=== PATIENT | female | born 1955 | race Caucasian/White ===

== ENCOUNTER 2020-10-30 21:22 | Observation (INO) | payer MEDICARE ==
[2020-10-30 23:24] LABS: Albumin 4.1 g/dL (3.5-5.0); Calcium 9.6 mg/dL (8.4-10.2); Magnesium 1.8 mg/dL (1.6-2.3); Potassium 4.1 mmol/L (3.5-5.1); Total Bilirubin 0.3 mg/dL (0.2-1.3); Total Protein 7.1 g/dL (6.3-8.2)
--- NOTE | 2020-10-30 23:27 | XR ---
EXAMINATION TYPE: XR chest 2V DATE OF EXAM: 10/30/2020 COMPARISON: NONE HISTORY: Cough and congestion TECHNIQUE: 2 views FINDINGS: Heart and mediastinum are normal. Lungs are clear of infiltrate. There is no pleural effusi on. There are no hilar masses. There is osteopenia. There is probably some minimal wedging of mid thoracic vertebra. IMPRESSION: No active cardiopulmonary disease.
[2020-10-30 23:33] LABS: Basophils # (A) 0.1 k/uL (0-0.2); Basophils % (A) 1 %; Eosinophils # (A) 0.4 k/uL (0-0.7); Eosinophils % (A) 5 %; HCT 43.1 % (34.0-46.0); HGB 14.7 gm/dL (11.4-16.0); Lymphocytes # (A) 1.8 k/uL (1.0-4.8); Lymphocytes % (A) 20 %; MCH 31.3 pg (25.0-35.0); MCHC 34.1 g/dL (31.0-37.0); MCV 91.9 fL (80.0-100.0); Mean Platelet Volume 6.9; Monocytes # (A) 0.5 k/uL (0-1.0); Monocytes % (A) 6 %; Neutrophils # (A) 6.2 k/uL (1.3-7.7); Neutrophils % (A) 68 %; Platelet Count 274 k/uL (150-450); RBC 4.69 m/uL (3.80-5.40); WBC 9.1 k/uL (3.8-10.6)
[2020-10-30 23:37] LABS: Partial Thromboplastin Time 25.6 sec (22.0-30.0); Prothrombin Time 10.9 sec (9.0-12.0)
--- NOTE | 2020-10-30 23:53 | ED ---
General Adult HPI - General Chief complaint: Upper Respiratory Infection Stated complaint: Cough,Weakness Time Seen by Provider: 10/30/20 22:11 Source: patient Mode of arrival: ambulatory Limitations: no limitations - History of Present Illness Initial comments: 65-year-old female with history of hypertension and dyslipidemia presents emergency Department with a chief complaint of cough and congestion. Patient reports the symptoms began approximately 1 week ago with URI-like symptoms but since yesterday she developed worsening of a nonproductive cough and fatigue. Patient reports she was tested on Wednesday and got the results 2 days after that was negative for covid-19an. However, she states her daughter tested positive. She denies any fever or chills at home but does report some dizziness without any lightheadedness. She reports having pain "under her left shoulder blade" earlier today that lasted for about 2-3 hours. She denies any exertional chest pain or shortness of breath. Patient states her blood pressure has been elevated throughout the whole week while she was been sick. Patient takes propranolol for hypertension. She denies any nausea vomiting or diarrhea. She denies any visual changes, headaches, one-sided weakness or paresthesias. - Related Data Allergies Allergy/AdvReac Type Severity Reaction Status Date / Time ciprofloxacin [From Cipro] Allergy Unknown Verified 10/30/20 21:39 Sulfa (Sulfonamide Allergy Unknown Verified 10/30/20 21:39 Antibiotics) sulfamethoxazole Allergy Unknown Verified 10/30/20 21:39 [From Bactrim] trimethoprim [From Bactrim] Allergy Unknown Verified 10/30/20 21:39 steroid Allergy Unknown Uncoded 10/30/20 21:39 Review of Systems ROS Statement: Those systems with pertinent positive or pertinent negative responses have been documented in the HPI. ROS Other: All systems not noted in ROS Statement are negative. Past Medical History Past Medical History: Hypertension History of Any Multi-Drug Resistant Organisms: None Reported Past Surgical History: No Surgical Hx Reported Past Psychological History: No Psychological Hx Reported Smoking Status: Never smoker Past Alcohol Use History: None Reported Past Drug Use History: None Reported General Exam Limitations: no limitations General appearance: alert, in no apparent distress Head exam: Present: atraumatic, normocephalic, normal inspection Eye exam: Present: normal appearance, PERRL, EOMI Pupils: Present: normal accommodation ENT exam: Present: normal exam, normal oropharynx, mucous membranes moist, TM's normal bilaterally, normal external ear exam Neck exam: Present: normal inspection, full ROM. Absent: tenderness Respiratory exam: Present: normal lung sounds bilaterally. Absent: respiratory distress, wheezes, rales, rhonchi, stridor, chest wall tenderness, accessory muscle use Cardiovascular Exam: Present: regular rate, normal rhythm, normal heart sounds GI/Abdominal exam: Present: soft. Absent: distended, tenderness, rebound Extremities exam: Present: normal inspection, full ROM, normal capillary refill. Absent: tenderness, pedal edema, joint swelling Back exam: Present: normal inspection, full ROM. Absent: tenderness, CVA tenderness (R), CVA tenderness (L), muscle spasm, paraspinal tenderness, vertebral tenderness Neurological exam: Present: alert, oriented X3, normal gait Psychiatric exam: Present: normal affect, normal mood Skin exam: Present: warm, dry, intact, normal color Course Vital Signs 10/30/20 10/30/20 10/30/20 21:32 22:14 23:24 Temperature 98.4 F Pulse Rate 67 71 74 Respiratory 18 18 18 Rate Blood Pressure 213/118 180/113 145/88 O2 Sat by Pulse 97 97 96 Oximetry 10/31/20 00:00 Temperature Pulse Rate 70 Respiratory 20 Rate Blood Pressure 154/96 O2 Sat by Pulse 97 Oximetry EKG Findings - EKG Comments: EKG Findings:: Sinus rhythm, inverted T waves in lead 3. Ventricular rate 67, AR 164, QRS 78, QTC 429. Medical Decision Making - Medical Decision Making 65-year-old female with history of hypertension and dyslipidemia presents emergency Department with a chief complaint of cough and congestion. CBC CMP unremarkable. Coags within normal limits. Chest x-ray is unremarkable. Initial troponins are negative. Considering the patient's presentation, concern for an atypical cardiac event. Patient has never had a stress test nor an echocardiogram. I will admit for cardiac observation and serial troponins. Case discussed with Admitting Dr Juan C Huynh on consult - Lab Data Result diagrams: 10/30/20 23:09 10/30/20 23:09 Lab Results 10/30/20 10/30/20 10/30/20 Range/Units 22:25 23:09 23:09 WBC 9.1 (3.8-10.6) k/uL RBC 4.69 (3.80-5.40) m/uL Hgb 14.7 (11.4-16.0) gm/dL Hct 43.1 (34.0-46.0) % MCV 91.9 (80.0-100.0) fL MCH 31.3 (25.0-35.0) pg MCHC 34.1 (31.0-37.0) g/dL RDW 12.0 (11.5-15.5) % Plt Count 274 (150-450) k/uL MPV 6.9 Neutrophils % 68 % Lymphocytes % 20 % Monocytes % 6 % Eosinophils % 5 % Basophils % 1 % Neutrophils # 6.2 (1.3-7.7) k/uL Lymphocytes # 1.8 (1.0-4.8) k/uL Monocytes # 0.5 (0-1.0) k/uL Eosinophils # 0.4 (0-0.7) k/uL Basophils # 0.1 (0-0.2) k/uL PT 10.9 (9.0-12.0) sec INR 1.0 (<1.2) APTT 25.6 (22.0-30.0) sec Sodium (137-145) mmol/L Potassium (3.5-5.1) mmol/L Chloride (98-107) mmol/L Carbon Dioxide (22-30) mmol/L Anion Gap mmol/L BUN (7-17) mg/dL Creatinine (0.52-1.04) mg/dL Est GFR (CKD-EPI)AfAm (>60 ml/min/1.73 sqM) Est GFR (CKD-EPI)NonAf (>60 ml/min/1.73 sqM) Glucose (74-99) mg/dL Calcium (8.4-10.2) mg/dL Magnesium (1.6-2.3) mg/dL Total Bilirubin (0.2-1.3) mg/dL AST (14-36) U/L ALT (4-34) U/L Alkaline Phosphatase (38-126) U/L Troponin I (0.000-0.034) ng/mL Total Protein (6.3-8.2) g/dL Albumin (3.5-5.0) g/dL Influenza Type A (PCR) Not Detected (Not Detectd) Influenza Type B (PCR) Not Detected (Not Detectd) RSV (PCR) Not Detected (Not Detectd) SARS-CoV-2 (PCR) Not Detected (Not Detectd) 10/30/20 10/30/20 Range/Units 23:09 23:09 WBC (3.8-10.6) k/uL RBC (3.80-5.40) m/uL Hgb (11.4-16.0) gm/dL Hct (34.0-46.0) % MCV (80.0-100.0) fL MCH (25.0-35.0) pg MCHC (31.0-37.0) g/dL RDW (11.5-15.5) % Plt Count (150-450) k/uL MPV Neutrophils % % Lymphocytes % % Monocytes % % Eosinophils % % Basophils % % Neutrophils # (1.3-7.7) k/uL Lymphocytes # (1.0-4.8) k/uL Monocytes # (0-1.0) k/uL Eosinophils # (0-0.7) k/uL Basophils # (0-0.2) k/uL PT (9.0-12.0) sec INR (<1.2) APTT (22.0-30.0) sec Sodium 141 (137-145) mmol/L Potassium 4.1 (3.5-5.1) mmol/L Chloride 108 H (98-107) mmol/L Carbon Dioxide 24 (22-30) mmol/L Anion Gap 9 mmol/L BUN 14 (7-17) mg/dL Creatinine 0.84 (0.52-1.04) mg/dL Est GFR (CKD-EPI)AfAm 84 (>60 ml/min/1.73 sqM) Est GFR (CKD-EPI)NonAf 73 (>60 ml/min/1.73 sqM) Glucose 144 H (74-99) mg/dL Calcium 9.6 (8.4-10.2) mg/dL Magnesium 1.8 (1.6-2.3) mg/dL Total Bilirubin 0.3 (0.2-1.3) mg/dL AST 28 (14-36) U/L ALT 25 (4-34) U/L Alkaline Phosphatase 88 (38-126) U/L Troponin I <0.012 (0.000-0.034) ng/mL Total Protein 7.1 (6.3-8.2) g/dL Albumin 4.1 (3.5-5.0) g/dL Influenza Type A (PCR) (Not Detectd) Influenza Type B (PCR) (Not Detectd) RSV (PCR) (Not Detectd) SARS-CoV-2 (PCR) (Not Detectd) Disposition Clinical Impression: Acute upper respiratory infection, Atypical chest pain Disposition: ADMITTED IP TO THIS HOSP Condition: Stable Instructions (If sedation given, give patient instructions): Upper Respiratory Infection in Children (ED) Is patient prescribed a controlled substance at d/c from ED?: No Referrals: Maki Esteban MD [Primary Care Provider] - 1-2 days Time of Disposition: 00:57
[2020-10-31] MEDS ORDERED: NITROGLYCERIN SL TABS 0.4 MG TAB SUBLINGUAL PRN (00:31)
--- NOTE | 2020-10-31 12:45 | P.CRDCN ---
History of Present Illness History of present illness: HISTORY OF PRESENTING ILLNESS This is a pleasant 65-year-old female past medical history significant for hypertension and migraines. 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 Patient states that yesterday she had elevated blood pressure 166/111. She also has had increased anxiety and stressors at home. She states that everyone calls Homes, and it does stressors at times. She states she had left sided shoulder blade pain and presented emergency department. Patient denies chest pain, shortness of breath, palpitations, fatigue, lightheadedness, dizziness. She is a nondiabetic, nonsmoker. She used to have high cholesterol however has had a controlled diet changes. 2 years ago she had similar presentation with elevated blood pressure she went to a hospital in [place] she underwent stress test, echocardiogram, bilateral ultrasound of carotids and was told that these tests were all normal. She states that her doctor put her on propanolol 60 mg daily to help with her migraines and her blood pressure. On admission patient's blood pressure 213/118, heart rate 67 patient not given any medications for her heart rate improved currently her blood pressure is 107/70, heart rate in the 60s DIAGNOSTICS EKG reveals sinus rhythm, heart rate 67, T wave inversion in lead III, second EKG revealed sinus bradycardia, heart rate 48, T wave inversions in lead III. no significant ST ST-T wave abnormalities, no prior EKG to compare. Telemetry tracings indicate sinus mechanism, heart rate 60-100 Chest xray no active cardiopulmonary disease. Laboratory reviewed, troponins negative 3, renal function is stable, potassium 4.1, magnesium 1.8, COVID-19 negative, CBC unremarkable Current cardiac medications include propanolol 60 mg nightly REVIEW OF SYSTEMS At the time of my exam: CONSTITUTIONAL: Denies fever or chills. CARDIOVASCULAR: Denies chest pain, shortness of breath, orthopnea, PND or palpitations. RESPIRATORY: Denies cough. GASTROINTESTINAL: Denies abdominal pain, diarrhea, constipation, nausea or vomiting. MUSCULOSKELETAL: Left upper back pain Denies myalgias. NEUROLOGIC: Denies numbness, tingling, headacbe or weakness. ENDOCRINE: Denies fatigue, weight change, polydipsia or polyurina. GENITOURINARY: Denies burning, hematuria or urgency with micturation. HEMATOLOGIC: Denies history of anemia or bleeding. PHYSICAL EXAMINATION Blood pressure 107/70 heart rate 60 afebrile and maintaining oxygen saturation 96% on room air CONSTITUTIONAL: No apparent distress. HEENT: Head is normocephalic. Pupils are equal, round. Sclerae anicteric. Mucous membranes of the mouth are moist. No JVD. No carotid bruit. CHEST EXAMINATION: Lungs are clear to auscultation. No chest wall tenderness is noted on palpation or with deep breathing. HEART EXAMINATION: Regular rate and rhythm. S1, S2 heard. No murmurs, gallops or rub. ABDOMEN: Soft, nontender. Positive bowel sounds. EXTREMITIES: 2+ peripheral pulses, no lower extremity edema and no calf tenderness. NEUROLOGIC EXAMINATION: Patient is awake, alert and oriented x3. ASSESSMENT Atypical chest pain, acute coronary syndrome has been ruled out Hypertension PLAN An acute coronary event has been ruled out with no EKG evidence of ischemia and negative cardiac enzymes. Obtain 2D echocardiogram and doppler study to assess cardiac structure and function. Perform exercise stress test to assess for stress induced cardiac ischemia. Exercise stress test is negative, in no acute changes on echocardiogram patient can be discharged from cardiology perspective Follow up with Dr. Alan within 2 weeks Thank you kindly for this consultation. Nurse Practitioner note has been reviewed, I agree with a documented findings and plan of care. Patient was seen and examined. Past Medical History Past Medical History: Hyperlipidemia, Hypertension History of Any Multi-Drug Resistant Organisms: None Reported Past Surgical History: Cholecystectomy, Hysterectomy Additional Past Surgical History / Comment(s): left ankle tendon repair and joint fusion, partial hysterectomy, tonsoils removed Past Anesthesia/Blood Transfusion Reactions: No Reported Reaction Past Psychological History: No Psychological Hx Reported Smoking Status: Never smoker Past Alcohol Use History: None Reported Past Drug Use History: None Reported - Past Family History Father Additional Family Medical History / Comment(s): mitral valve repair Mother Family Medical History: Myocardial Infarction ([place]) Brother(s) Family Medical History: CVA/TIA, Hypertension Medications and Allergies Home Medications Medication Instructions Recorded Confirmed Type Pantoprazole [Protonix] 40 mg PO AC-BRKFST 10/31/20 10/31/20 History Propranolol HCl [Propranolol HCl 60 mg PO HS@2200 10/31/20 10/31/20 History ER] Allergies Allergy/AdvReac Type Severity Reaction Status Date / Time ciprofloxacin [From Cipro] Allergy Unknown Verified 10/31/20 06:54 Sulfa (Sulfonamide Allergy Unknown Verified 10/31/20 06:54 Antibiotics) sulfamethoxazole Allergy Unknown Verified 10/31/20 06:54 [From Bactrim] trimethoprim [From Bactrim] Allergy Unknown Verified 10/31/20 06:54 steroid Allergy Unknown Uncoded 10/31/20 06:54 Physical Exam Vitals: Vital Signs Temp Pulse Pulse Resp BP BP Pulse Ox 10/31/20 03:41 97.8 F 60 16 153/85 97 10/31/20 01:50 98 F 64 16 147/86 96 10/31/20 01:31 98 F 62 20 152/88 98 10/31/20 00:00 70 20 154/96 97 10/30/20 23:24 74 18 145/88 96 10/30/20 22:14 71 18 180/113 97 10/30/20 21:32 98.4 F 67 18 213/118 97 Intake and Output 10/30/20 10/31/20 10/31/20 22:59 06:59 14:59 Intake Total 240 Balance 240 Intake: Oral 240 Other: Voiding Method Toilet # Voids 2 Weight 76.204 kg 76.2 kg Results 10/30/20 23:09 10/30/20 23:09 Cardiac Enzymes 10/30/20 10/30/20 10/31/20 Range/Units 23:09 23:09 01:24 AST 28 (14-36) U/L Troponin I <0.012 <0.012 (0.000-0.034) ng/mL 10/31/20 Range/Units 04:08 AST (14-36) U/L Troponin I <0.012 (0.000-0.034) ng/mL Coagulation 10/30/20 Range/Units 23:09 PT 10.9 (9.0-12.0) sec APTT 25.6 (22.0-30.0) sec CBC 10/30/20 Range/Units 23:09 WBC 9.1 (3.8-10.6) k/uL RBC 4.69 (3.80-5.40) m/uL Hgb 14.7 (11.4-16.0) gm/dL Hct 43.1 (34.0-46.0) % Plt Count 274 (150-450) k/uL Comprehensive Metabolic Panel 10/30/20 Range/Units 23:09 Sodium 141 (137-145) mmol/L Potassium 4.1 (3.5-5.1) mmol/L Chloride 108 H (98-107) mmol/L Carbon Dioxide 24 (22-30) mmol/L BUN 14 (7-17) mg/dL Creatinine 0.84 (0.52-1.04) mg/dL Glucose 144 H (74-99) mg/dL Calcium 9.6 (8.4-10.2) mg/dL AST 28 (14-36) U/L ALT 25 (4-34) U/L Alkaline Phosphatase 88 (38-126) U/L Total Protein 7.1 (6.3-8.2) g/dL Albumin 4.1 (3.5-5.0) g/dL Current Medications Generic Name Dose Route Start Last Admin Trade Name Freq PRN Reason Stop Dose Admin Aspirin 325 mg 11/01/20 09:00 Aspirin 325 Mg Tab PO DAILY TEDDY Nitroglycerin 0.4 mg 10/31/20 00:31 Nitroglycerin Sl Tabs 0.4 Mg Tab SUBLINGUAL Q5M PRN Chest Pain Intake and Output 10/30/20 10/31/20 10/31/20 22:59 06:59 14:59 Intake Total 240 Balance 240 Intake: Oral 240 Other: Voiding Method Toilet # Voids 2 Weight 76.204 kg 76.2 kg 10/30/20 23:09 10/30/20 23:09
[2020-10-31] MEDS: PANTOPRAZOLE 40 MG TABLET PO SCH (13:59)
--- NOTE | 2020-10-31 20:05 | P.HPIM ---
History of Present Illness H&P Date: 10/31/20 Chief Complaint: Feeling unwell History of presenting complaint: This is a pleasant 65 year old patient of Dr. Maki Esteban. Patient been taking her blood pressure medication for quite some time. She now presents with an episode of just feeling unwell feeling off anxious crying. She states that she get these next 0 symptoms she noted that her blood pressure is running high. On this occasion her blood pressure was running above 200 systolic and above 100 diastolic. No chest or palpitation. She is with 7 children. And often temperature admin confiding to her and she internalizes their problems.. Also her sister is going through some trouble and has been confiding enough for last 3 days. Also children have been calling her because their father got m arried to somebody else. Otherwise patient been in good health otherwise. No fever no chills. No dizziness, lightheadedness. No shortness breath. No edema. Review of systems: GEN.: Tired EYES: None HEENT: None NECK: None RESPIRATORY: None CARDIOVASCULAR: None GASTROINTESTINAL: Reflex GENITOURINARY: Urinary incontinence MUSCULOSKELETAL: Joint pains LYMPHATICS: None HEMATOLOGICAL: None PSYCHIATRY: Slight anxious NEUROLOGICAL: None Past medical history to include: Hypertension, diet controlled hyperlipidemia, osteoarthritis, GERD Social history: Does alone. No history of smoking or alcohol Physical examination: VITAL SIGNS: 98.4, 67, 18, 213 01 118, 97% room air upon presentation GENERAL: Average built, sitting up, comfortable. EYES: Pupils equal. Conjunctiva normal. HEENT: External appearance of nose and ears normal, oral cavity grossly normal. NECK: JVD not raised; masses not palpable. HEART: First and second heart sounds are normal; no edema. LUNGS: Respiratory rate normal; clear to auscultation. ABDOMEN: Soft, nontender, liver spleen not palpable, no masses palpable. PSYCH: Alert and oriented x3; mood and affect normal. NEUROLOGICAL: Cranial nerves grossly intact; no facial asymmetry, power and sensation grossly intact. LYMPHATICS: No lymph nodes palpable in the axilla and neck INVESTIGATIONS, reviewed in the clinical context: WBC 9.1 hemoglobin 14.7 platelets 2744.1 creatinine 0.84 Troponin I 3 negative Influenza type A, type B, RSV, COVID 19 PCR: Not detected EKG tracing personally reviewed by me-no sinus rhythm, with some T-wave changes Chest x-ray film personally reviewed by me--clear Assessment and plan: -This is a patient with known history of hypertension now presents with feeling unwell symptoms including anxious, crying, feeling off. She has been dealing with her social issues rundown the family members. This could be psychosomatic from her anxiety episode. At the same time giving the paroxysmal nature of the blood pressure need to rule out pheochromocytoma. We will do a 2-D echocardiogram. Also I'll order 24-hour urine collection for catecholamine and metanephrine. -Essential hypertension Patient's blood pressure is rather running well currently. Hold off any antihypertensive. -GERD Continue Protonix -Mild urinary stress incontinence Care was discussed with the patient. Cardiology consulted. Past Medical History Past Medical History: Hyperlipidemia, Hypertension History of Any Multi-Drug Resistant Organisms: None Reported Past Surgical History: Cholecystectomy, Hysterectomy Additional Past Surgical History / Comment(s): left ankle tendon repair and joint fusion, partial hysterectomy, tonsoils removed Past Anesthesia/Blood Transfusion Reactions: No Reported Reaction Past Psychological History: No Psychological Hx Reported Smoking Status: Never smoker Past Alcohol Use History: None Reported Past Drug Use History: None Reported - Past Family History Father Additional Family Medical History / Comment(s): mitral valve repair Mother Family Medical History: Myocardial Infarction ([place]) Brother(s) Family Medical History: CVA/TIA, Hypertension Medications and Allergies Home Medications Medication Instructions Recorded Confirmed Type Pantoprazole [Protonix] 40 mg PO AC-BRKFST 10/31/20 10/31/20 History Propranolol HCl [Propranolol HCl 60 mg PO HS@2200 10/31/20 10/31/20 History ER] Allergies Allergy/AdvReac Type Severity Reaction Status Date / Time ciprofloxacin [From Cipro] Allergy Unknown Verified 10/31/20 06:54 Sulfa (Sulfonamide Allergy Unknown Verified 10/31/20 06:54 Antibiotics) sulfamethoxazole Allergy Unknown Verified 10/31/20 06:54 [From Bactrim] trimethoprim [From Bactrim] Allergy Unknown Verified 10/31/20 06:54 steroid Allergy Unknown Uncoded 10/31/20 06:54 Physical Exam Vitals: Vital Signs Temp Pulse Pulse Resp BP BP Pulse Ox 10/31/20 11:17 60 16 107/70 94 L 10/31/20 09:27 62 16 111/71 96 10/31/20 03:41 97.8 F 60 16 153/85 97 10/31/20 01:50 98 F 64 16 147/86 96 10/31/20 01:31 98 F 62 20 152/88 98 10/31/20 00:00 70 20 154/96 97 10/30/20 23:24 74 18 145/88 96 10/30/20 22:14 71 18 180/113 97 10/30/20 21:32 98.4 F 67 18 213/118 97 Intake and Output 10/30/20 10/31/20 10/31/20 22:59 06:59 14:59 Intake Total 240 Balance 240 Intake: Oral 240 Other: Voiding Method Toilet Toilet # Voids 2 Weight 76.204 kg 76.2 kg Results CBC & Chem 7: 10/30/20 23:09 10/30/20 23:09 Labs: Abnormal Lab Results - Last 24 Hours (Table) 10/30/20 Range/Units 23:09 Chloride 108 H (98-107) mmol/L Glucose 144 H (74-99) mg/dL Thrombosis Risk Factor Assmnt - Choose All That Apply Each Factor Represents 1 point: Obesity (BMI >25) Each Risk Factor Represents 2 Points: Age 61-74 years Thrombosis Risk Factor Assessment Total Risk Factor Score: 3 Thrombosis Risk Factor Assessment Level: Moderate Risk
[2020-11-01 06:00] LABS: Cholesterol 201 mg/dL (<200); HDL Cholesterol 47 mg/dL (40-60); LDL Cholesterol,Calculated 119 mg/dL (0-99); Triglycerides 176 mg/dL (<150)
[2020-11-01] MEDS: PANTOPRAZOLE 40 MG TABLET PO SCH (06:55)
[2020-11-01] MEDS ORDERED: ASPIRIN 325 MG TAB PO SCH (09:00)
--- NOTE | 2020-11-01 11:54 | ECHOF ---
Referral Reason:Assess LV function and wall abnormalities MEASUREMENTS -------- HEIGHT: 160.0 cm WEIGHT: 76.2 kg BP: RVIDd: 3.0 cm (< 3.3) IVSd: 1.1 cm (0.6 - 1.1) LVIDd: 3.6 cm (3.9 - 5.3) LVPWd: 1.0 cm (0.6 - 1.1) IVSs: 1.5 cm LVIDs: 2.4 cm LVPWs: 1.0 cm LA Diam: 2.7 cm (2.7 - 3.8) Ao Diam: 3.4 cm (2.0 - 3.7) AV Cusp: 1.6 cm (1.5 - 2.6) LA Diam: 4.1 cm (2.7 - 3.8) MV EXCURSION: 17.570 mm (> 18.000) MV EF SLOPE: 62 mm/s (70 - 150) EPSS: 0.3 cm MV E Henrik: 0.53 m/s MV DecT: 234 ms MV A Henrik: 0.53 m/s MV E/A Ratio: 0.99 RAP: 5.00 mmHg RVSP: 22.12 mmHg FINDINGS -------- Sinus rhythm. This was a technically good study. LV size, wall thickness and systolic function are normal, with an EF greater than 55%. The left joselito tricular size is normal. The right ventricle is normal in size. The left atrial size is normal. The right atrial size is normal. There is mild aortic valve sclerosis. There is no evidence of aortic regurgitation. Mild mitral annular calcification present. Mild mitral regurgitation is present. Mild tricuspid regurgitation present. Right ventricular systolic pressure is normal at < 35 mmHg. There is no pulmonic regurgitation present. The aortic root size is normal. There is no pericardial effusion. CONCLUSIONS -------- 1. LV size, wall thickness and systolic function are normal, with an EF greater than 55%. 2. The left ventricular size is normal. 3. The right ventricle is normal in size. 4. The left atrial size is normal. 5. The right atrial size is normal. 6. There is mild aortic valve sclerosis. 7. Mild mitral annular calcification present. 8. Mild mitral regurgitation is present. 9. Mild tricuspid regurgitation present. 10. The aortic root size is normal. 11. There is no pericardial effusion. [employer] BLASTING: Luci Tian RDCS
--- NOTE | 2020-11-01 12:10 | P.STRESS ---
- Stress Test Note Stress Test Results/Findings: Exam Performed: stress test Exam Date: 10/31/20 Reason for Exam: HTN Height: 5 ft 3 in Weight: 75.8 kg Protocol: JEVON Stage: II Duration of Exercise: 6.18 Resting Heart Rate: 68 Resting Blood Pressure: 137/98 Maximum Achieved Heart Rate: 116 Maximum Achieved Blood Pressure: 170/103 85% PMHR: 75 100% PMHR: 154 METS: 134 Technologist Comment: Stress Test Results/Findings: Patient underwent exercise stress EKG with a Jevon protocol treadmill stress test. Patient exercised into Stage 2 for a total of 6 minutes 18 seconds reaching a total of 7.3 METS. Patient's maximum heart rate was 116 which represented 75% age-predicted maximum heart rate. Stress EKG findings: At baseline patient's EKG showed normal sinus rhythm, normal axis, no ST or T wave abnormalities. At peak exercise, EKG showed nonspecific 0.[address] depressions in the inferior and lateral leads. Conclusions: 1. Inconclusive stress EKG secondary to inability to reach 85% maximum predicted heart rate 2. However at the heart rate achieved, no evidence of stress-induced ischemia. 3. Fair exercise capacity.
--- NOTE | 2020-11-01 12:59 | P.PN ---
Subjective HISTORY OF PRESENTING ILLNESS This is a pleasant 65-year-old female past medical history significant for hypertension and migraines. 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 Patient states that yesterday she had elevated blood pressure 166/111. She also has had increased anxiety and stressors at home. She states that everyone calls Homes, and it does stressors at times. She states she had left sided shoulder blade pain and presented emergency department. Patient denies chest pain, shortness of breath, palpitations, fatigue, lightheadedness, dizziness. She is a nondiabetic, nonsmoker. She used to have high cholesterol however has had a controlled diet changes. 2 years ago she had similar presentation with elevated blood pressure she went to a hospital in [place] she underwent stress test, echocardiogram, bilateral ultrasound of carotids and was told that these tests were all normal. She states that her doctor put her on propanolol 60 mg daily to help with her migraines and her blood pressure. On admission patient's blood pressure 213/118, heart rate 67 patient not given any medications for her heart rate improved currently her blood pressure is 107/70, heart rate in the 60s. EKG reveals sinus rhythm, heart rate 67, T wave inversion in lead III, second EKG revealed sinus bradycardia, heart rate 48, T wave inversions in lead III. no significant ST ST-T wave abnormalities, no prior EKG to compare. troponins negative 3. Chest xray no active cardiopulmonary disease.Current home cardiac medications include propanolol 60 mg nightly 11/01/2020: Patient seen and examined at bedside, no complaints, no acute distress. Patient underwent exercise stress testwith Juan Jose protocol yesterday patient's maximum heart rate was 116 which represented 75% of age-predicted maximum heart rate. Results reviewed inconclusive stress EKG secondary to inability to reach 85% maximum predicted HR however at heart rate achieved no evidence of stress induced ischemia. echocardiogram revealed normal left ventricular systolic function with an EF greater than 55%, mild mitral regurgitation, mild tricuspid regurgitation. Telemetry tracings indicate sinus mechanism, heart rate 50-70s. Patient's BP has been stable and actually hypotensive BP 95/62 HR 80s PHYSICAL EXAMINATION CONSTITUTIONAL: No apparent distress. HEENT: Head is normocephalic No JVD. No carotid bruit. CHEST EXAMINATION: Lungs are clear to auscultation. HEART EXAMINATION: Regular rate and rhythm. S1, S2 heard. No murmurs, gallops or rub. ABDOMEN: Soft, nontender. Positive bowel sounds. EXTREMITIES: 2+ peripheral pulses, no lower extremity edema and no calf tenderness. NEUROLOGIC EXAMINATION: Patient is awake, alert and oriented x3. ASSESSMENT Atypical chest pain, acute coronary syndrome has been ruled out Hypertension PLAN From cardiology perspective, patient with negative stress test and echocardiogram with no acute findings. Patient can be discharged home. and follow up outpatient with Dr. Alan within 2 weeks. Patient blood pressure has been stable without propanolol use. Thank you kindly for this consultation. Nurse Practitioner note has been reviewed, I agree with a documented findings and plan of care. Patient was seen and examined. Objective - Vital Signs Vital signs: Vital Signs Temp 97.4 F L 11/01/20 08:00 Pulse 69 11/01/20 08:00 Resp 18 11/01/20 08:00 BP 105/71 11/01/20 08:00 Pulse Ox 94 L 11/01/20 08:00 Intake & Output 10/31/20 11/01/20 11/01/20 18:59 06:59 18:59 Intake Total 1440 240 Output Total 300 Balance 1140 240 Weight 76.2 kg 75.8 kg Intake: Oral 1440 240 Output: Urine 300 Other: Voiding Method Toilet Toilet # Voids 1 - Labs CBC & Chem 7: 10/30/20 23:09 10/30/20 23:09 Labs: Abnormal Lab Results - Last 24 Hours (Table) 11/01/20 Range/Units 05:21 Triglycerides 176 H (<150) mg/dL Cholesterol 201 H (<200) mg/dL LDL Cholesterol, Calc 119 H (0-99) mg/dL
--- NOTE | 2020-11-01 16:04 | P.PN ---
Progress Note - Text Progress Note Date: 11/01/20 Chief Complaint: Feeling unwell History of presenting complaint: This is a pleasant 65 [address] old patient of Dr. Maki Esteban. Patient been taking her blood pressure medication for quite some time. She now presents with an episode of just feeling unwell feeling off anxious crying. She states that she get these next 0 symptoms she noted that her blood pressure is running high. On this occasion her blood pressure was running above 200 systolic and above 100 diastolic. No chest or palpitation. She is with 7 children. And often temperature admin confiding to her and she internalizes their problems.. Also her sister is going through some trouble and has been confiding enough for last 3 days. Also children have been calling her because their father got to somebody else. Otherwise patient been in good health otherwise. No fever no chills. No dizziness, lightheadedness. No shortness breath. No edema. Today: Patient informs pain that the night nurse the day before and told her to start the home blood pressure medications. That she has been taking the last 2 nights. Now that was not prescribed the hospital here. Her blood pressures occasionally running low this morning. Otherwise no further episodes. Patient started a 24-hour urine collection for catecholamines. Review of systems: Was done for constitutional, cardiovascular, GI, pulmonary. relevant finding as above Active Medications Nitroglycerin (Nitroglycerin Sl Tabs 0.4 Mg Tab) 0.4 mg SUBLINGUAL Q5M PRN PRN Reason: Chest Pain Pantoprazole Sodium (Pantoprazole 40 Mg Tablet) 40 mg PO AC-BRKFST TEDDY Last Admin: 11/01/20 06:55 Dose: 40 mg Documented by: Past medical history to include: Hypertension, diet controlled hyperlipidemia, osteoarthritis, GERD Social history: Does alone. No history of smoking or alcohol Physical examination: VITAL SIGNS: 97.4, 69, 1818, 105/71, 94% room air GENERAL: , sitting up, comfortable. EYES: Pupils equal. Conjunctiva normal. HEENT: External appearance of nose and ears normal, oral cavity grossly normal. NECK: JVD not raised; masses not palpable. HEART: First and second heart sounds are normal; no edema. LUNGS: Respiratory rate normal; clear to auscultation. ABDOMEN: Soft, nontender, liver spleen not palpable, no masses palpable. PSYCH: Alert and oriented x3; mood and affect normal. INVESTIGATIONS, reviewed in the clinical context: Exercise stress EKG with Juan Jose protocol treadmill: Inconclusive secondary to inability to reach 85% of maximum predicted heart rate. No evidence of stress- induced ischemia at this level. 2-D echocardiogram: EF greater than 55% LDL 119 WBC 9.1 hemoglobin 14.7 platelets 2744.1 creatinine 0.84 Troponin I 3 negative Influenza type A, type B, RSV, COVID 19 PCR: Not detected EKG tracing personally reviewed by me-no sinus rhythm, with some T-wave changes Chest x-ray film personally reviewed by me--clear Assessment and plan: -This is a patient with known history of hypertension now presents with feeling unwell symptoms including anxious, crying, feeling off. She has been dealing with her social issues rundown the family members. This could be psychosomatic from her anxiety episode. At the same time giving the paroxysmal nature of the blood pressure need to rule out pheochromocytoma. Also I'll order 24-hour urine collection for catecholamine and metanephrine. -Essential hypertension It was discovered today that patient been taking her home blood pressure medications as told by a night nurse 2 nights ago. We'll hold off blood pressure medications. Follow blood pressure closely. -GERD Continue Protonix -Mild urinary stress incontinence Discussed with the patient. We'll make sure she does not take any antihypertensives. Check blood pressure frequently. Add melatonin.
[2020-11-01] MEDS ORDERED: MELATONIN 3 MG TABLET PO SCH (21:00)
[2020-11-02] MEDS: PANTOPRAZOLE 40 MG TABLET PO SCH (06:38)
[2020-11-02 08:31] VITALS: TEMP 96.9
[2020-11-02 13:52] VITALS: BP 117/88; PULSE 63; RESP 18
--- NOTE | 2020-11-02 14:49 | P.DS ---
Providers Date of admission: 10/31/20 01:18 Expected date of discharge: 11/02/20 Attending physician: Rufino Olivares Consults: 10/31/20 00:31 Consult Physician Urgent Consulting Provider: Moses Beltran Consult Reason/Comments: Atypical chest pain Do you want consulting provider notified?: Yes Primary care physician: Maki Esteban [facility] Course: Chief Complaint: Feeling unwell History of presenting complaint: This is a pleasant 65 [address] old patient of Dr. Maki Esteban. Patient been taking her blood pressure medication for quite some time. She now presents with an episode of just feeling unwell feeling off anxious crying. She states that she get these next 0 symptoms she noted that her blood pressure is running high. On this occasion her blood pressure was running above 200 systolic and above 100 diastolic. No chest or palpitation. She is with 7 children. And often temperature admin confiding to her and she internalizes their problems.. Also her sister is going through some trouble and has been confiding enough for last 3 days. Also children have been calling her because their father got to somebody else. Otherwise patient been in good health otherwise. No fever no chills. No dizziness, lightheadedness. No shortness breath. No edema. Patient the first 2 nights had taken her home medication as told to her by the nurse. Even that was not prescribed. The night before the discharge heart long-acting beta solitario was actually discontinued. Patient underwent exercise stress test that was negative. Today: Without taking a blood pressure medication morning blood pressure was 117/ 88. Has long-acting beta solitario was discontinued. 24-hour urine for catecholamines and metanephrine was collected. Results to be followed up by Dr. Esteban. If positive will then need further workup as an outpatient. Patient is given melatonin when necessary for insomnia. Questions answered. Also told to record daily blood pressure in the morning and keep a log of the same. Discussion and discharge planning more than 35 minutes Consultation: Dr. GERHARD Alan from cardiology Past medical history to include: Hypertension, diet controlled hyperlipidemia, osteoarthritis, GERD Social history: Does alone. No history of smoking or alcohol Physical examination: VITAL SIGNS: 96.9, 63, 18, 117/88, 100% on room air GENERAL: , sitting up, comfortable. EYES: Pupils equal. Conjunctiva normal. HEENT: External appearance of nose and ears normal, oral cavity grossly normal. NECK: JVD not raised; masses not palpable. HEART: First and second heart sounds are normal; no edema. LUNGS: Respiratory rate normal; clear to auscultation. ABDOMEN: Soft, nontender, liver spleen not palpable, no masses palpable. PSYCH: Alert and oriented x3; mood and affect normal. INVESTIGATIONS, reviewed in the clinical context: Exercise stress EKG with Juan Jose protocol treadmill: Inconclusive secondary to inability to reach 85% of maximum predicted heart rate. No evidence of stress- induced ischemia at this level. 2-D echocardiogram: EF greater than 55% LDL 119 WBC 9.1 hemoglobin 14.7 platelets 2744.1 creatinine 0.84 Troponin I 3 negative Influenza type A, type B, RSV, COVID 19 PCR: Not detected EKG tracing personally reviewed by me-no sinus rhythm, with some T-wave changes Chest x-ray film personally reviewed by me--clear Assessment and plan: -This is a patient with known history of hypertension now presents with feeling unwell symptoms including anxious, crying, feeling off. She has been dealing with her social issues rundown the family members. This could be psychosomatic from her anxiety episode. At the same time giving the paroxysmal nature of the blood pressure need to rule out pheochromocytoma. Also I'll order 24-hour urine collection for catecholamine and metanephrine.- Results to be followed up by Dr. Esteban. -Essential hypertension Patient long-acting beta solitario was discontinued. Patient's blood pressure well controlled off medications. May need a diuretic if needed as an outpatient. -GERD Continue Protonix -Mild urinary stress incontinence -Social stress disorder Due to family issues interactions Disposition: Home Patient Condition at Discharge: Stable Plan - Discharge Summary Discharge Rx Participant: No New Discharge Prescriptions: New Melatonin 1 mg PO HS #1 tablet Continue Pantoprazole [Protonix] 40 mg PO AC-BRKFST Discontinued Propranolol HCl [Propranolol HCl ER] 60 mg PO HS@2200 Discharge Medication List Pantoprazole [Protonix] 40 mg PO AC-BRKFST 10/31/20 [History] Melatonin 1 mg PO HS #1 tablet 11/02/20 [Rx] Follow up Appointment(s)/Referral(s): Mike Alan MD [STAFF PHYSICIAN] - 2 Weeks Maki Esteban MD [Primary Care Provider] - 1 Week Patient Instructions/Handouts: Upper Respiratory Infection in Children (ED) Activity/Diet/Wound Care/Special Instructions: BP check every am - keep log Discharge Disposition: HOME SELF-CARE
[2020-11-07 08:56] LABS: Dopamine 24 Hr Urine 202 ug/day (65-400); Epinephrine 24 Hr Urine <2 ug/day (0-20); Norepinephrine 24 Hr Urine 34 ug/day (15-80); Total Catecholamines Urine 34 ug/day (15-100); Urine Creatinine,24 Hr 0.9 gm/24h (0.8-1.8)
[2020-11-07 11:26] LABS: Metanephrines 24 Hour,Urine 86 ug/day (52-341); Normetanephrine 24 Hour,Urine 403 ug/day (88-444); Total Metanephrines 24 Hour,Ur 489 ug/day (140-785); Urine Creatinine, 24 Hr 0.9 gm/24h (0.8-1.8)
== END 2020-11-02 14:00 | disposition home or self-care (01) ==
LOC: EC 21:22 → 3SCARD 10-31 01:18
PROVIDERS: ADMIT Hospitalist; ATTEND Hospitalist
DX: R07.89 Other chest pain (principal); J06.9 Acute upper respiratory infection, unspecified; I10 Essential (primary) hypertension; E78.5 Hyperlipidemia, unspecified; M85.80 Other specified disorders of bone density and structure, unspecified site; F41.9 Anxiety disorder, unspecified; E78.00 Pure hypercholesterolemia, unspecified; R00.1 Bradycardia, unspecified; K21.9 Gastro-esophageal reflux disease without esophagitis; I95.9 Hypotension, unspecified; F43.9 Reaction to severe stress, unspecified; I08.1 Rheumatic disorders of both mitral and tricuspid valves; G47.00 Insomnia, unspecified; Z60.9 Problem related to social environment, unspecified; G43.909 Migraine, unspecified, not intractable, without status migrainosus; M19.90 Unspecified osteoarthritis, unspecified site; N39.3 Stress incontinence (female) (male); E66.9 Obesity, unspecified; Z68.29 Body mass index [BMI] 29.0-29.9, adult; Z20.822 Contact with and (suspected) exposure to COVID-19; Z79.899 Other long term (current) drug therapy; Z88.2 Allergy status to sulfonamides; Z88.1 Allergy status to other antibiotic agents; Z88.8 Allergy status to other drugs, medicaments and biological substances; Z90.711 Acquired absence of uterus with remaining cervical stump; Z90.49 Acquired absence of other specified parts of digestive tract; Z98.1 Arthrodesis status; Z82.49 Family history of ischemic heart disease and other diseases of the circulatory system; Z82.3 Family history of stroke
CPT/HCPCS: 93005 ×3; 99284; 36415; 93017; 93306; 80061; 80053; 83735; 84484 ×2; 85025; 85610; 85730; 82384; 83835; 87636; 71046; G0378 ×3

== ENCOUNTER → 2022-10-08 | Outpatient (CLI) | payer MEDICARE ==
[2022-10-08 15:37] LABS: Basophils # (A) 0.07 X 10*3/uL (0.00-0.10); Basophils % (A) 1.1 %; Eosinophils # (A) 0.29 X 10*3/uL (0.04-0.35); Eosinophils % (A) 4.4 %; HCT 44.1 % (37.2-46.3); HGB 14.3 g/dL (12.0-15.0); Immature Grans, Automated 0.3 %; Lymphocytes # (A) 2.26 X 10*3/uL (0.90-5.00); Lymphocytes % (A) 34.6 %; MCH 30.8 pg (27.0-32.0); MCHC 32.4 g/dL (32.0-37.0); MCV 94.8 fL (80.0-97.0); Mean Platelet Volume 9.7 fL (9.5-12.2); Monocytes # (A) 0.61 X 10*3/uL (0.20-1.00); Monocytes % (A) 9.3 %; NRBC Per 100 WBC 0 /100 WBCS (0.0-0.0); Neutrophils # (A) 3.28 X 10*3/uL (1.80-7.70); Neutrophils % (A) 50.3 %; Platelet Count 301 X 10*3/uL (140-440); RBC 4.65 X 10*6/uL (4.10-5.20); RDW 12.6 % (11.5-14.5); WBC 6.53 X 10*3/uL (4.50-10.00)
[2022-10-08 16:07] LABS: Anion Gap 11.2 mmol/L (10.00-18.00); Carbon Dioxide 26.8 mmol/L (20.0-27.5); Potassium 4.2 mmol/L (3.5-5.5)
== END | disposition home or self-care (01) ==
LOC: LABWHC1 09:00
PROVIDERS: ATTEND Orthopaedic Surgery
DX: Z01.812 Encounter for preprocedural laboratory examination (principal); M23.92 Unspecified internal derangement of left knee
CPT/HCPCS: 36415; 80051; 85025

== ENCOUNTER 2022-10-22 09:35 | Day surgery (SDC) | payer MEDICARE ==
[2022-10-20 09:53] VITALS: BMI 29.4
--- NOTE | 2022-10-21 14:06 | HP ---
HISTORY AND PHYSICAL DATE OF SCHEDULED SURGERY: 10/22/2022 HISTORY OF PRESENT ILLNESS: Sharri Chaney is a 67-year-old patient seen with progressive left knee pain. We discussed options for treatment. She elected to proceed with left knee arthroscopy. Consent was obtained. PAST MEDICAL HISTORY: Hypertension, hyperlipidemia. PAST SURGICAL HISTORY: Cholecystectomy, D and C, hysterectomy, tonsillectomy. DAILY MEDICATIONS: 1. . 2. Lipitor. 3. Lopressor. 4. Vitamins. ALLERGIES: Bactrim, Cipro, sulfa. SOCIAL HISTORY: She denies tobacco use. PHYSICAL EVALUATION OF LEFT KNEE: Range of motion is -1/2, 125 degrees. Moderate effusion. Tenderness along the medial and lateral joint lines. Positive medial Martha's. Positive lateral Martha's. Ligaments stable. Hip rotation without pain. Distal neurovascular exam intact. RADIOGRAPHS: Radiographs of the left knee revealed mild osteoarthritic changes. MRI left knee revealed medial meniscal tear along with a nondisplaced fracture involving lateral tibial plateau. IMPRESSION: 1. Internal derangement left knee with medial meniscal tear. 2. Hyperlipidemia. 3. Hypertension. 4. Gastroesophageal reflux disease. PLAN: Left knee arthroscopy with partial medial meniscectomy and debridement. MMODL / IJN: [id number] /
[~2022-10-22 09:35] MED LIST: HYDROmorphone 0.5 MG/0.5 ML SYRINGE IVP PRN; ONDANSETRON 4 MG/2 ML VIAL IVP ONE; fentaNYL (PF) 50 MCG/ML 2 ML AMP IV PRN
[2022-10-22] MEDS: LACTATED RINGERS 1,000 ML IV SCH ×2 (10:26→10:46)
[2022-10-22] MEDS ORDERED: ePHEDrine 50 MG/ML 1 ML VIAL ONE (10:43)
[2022-10-22] MEDS ORDERED: MIDAZOLAM 2 MG/2 ML VIAL ONE (10:43)
[2022-10-22] MEDS ORDERED: LIDOCAINE 2% INJ 20 MG/ML (2 ML VIAL) ONE (10:43)
[2022-10-22] MEDS ORDERED: SUCCINYLCHOLINE CHLORIDE 200 MG/10 ML VIAL IV ONE (10:43)
[2022-10-22] MEDS ORDERED: PROPOFOL 10 MG/ML 20 ML VIAL IV ONE (10:43)
[2022-10-22] MEDS ORDERED: fentaNYL (PF) 50 MCG/ML 2 ML AMP ONE (10:43)
[2022-10-22] MEDS ORDERED: BUPIVACAINE (PF) 0.25% 30 ML VIAL SQ ONE ×2 (10:57→11:19)
--- NOTE | 2022-10-22 11:35 | P.OP ---
Date of Procedure: 10/22/22 Preoperative Diagnosis: Internal derangement left knee Postoperative Diagnosis: 1. Tear medial meniscus left knee 2. Reactive synovitis medial, lateral and suprapatellar compartments left knee Procedure(s) Performed: 1. Arthroscopic partial medial meniscectomy left knee 2. Arthroscopic partial synovectomy medial, lateral and suprapatellar compartments left knee Anesthesia: MONTEZ, local Surgeon: Chidi Hernandez Estimated Blood Loss (ml): 7 Pathology: none sent Condition: stable Disposition: PACU Indications for Procedure: 67-year-old patient seen with progressive left knee pain. After having treatment options discussed, she elected to proceed with arthroscopy. Operative Findings: See description of procedure Description of Procedure: Patient was taken to the operative suite. Patient underwent a general anesthet ic by the department of anesthesia. Patient was given preoperative antibiotics. The left lower extremity was placed in a well-padded arthroscopic leg harper. The left leg was prepped and draped in the normal sterile orthopedic fashion. A lateral parapatellar and suprapatellar incision was made. Trochars were inserted. Arthroscopy was initiated. Suprapatellar pouch revealed diffuse thick reactive synovitis. The patellofemoral joint appeared to articulate congruently. There as grade 1 chondral malacia of the patella with no synovitis and tears present.. The scope was guided into the medial gutter. No loose bodies or plica were identified. The scope was then guided into the medial compartment. A medial parapatellar incision was made. Trocar inserted followed by probe. There was a complex tear involving the posterior horn of the medial meniscus. There was grade 1, she changes of the medial compartment with no tears. There was some thick reactive synovitis anteriorly. I performed a partial medial meniscectomy getting down to stable meniscal tissue. I performed a partial synovectomy decompressing the thick reactive synovitis. The residual meniscus was probed and was found to be stable. There was good decompression of the synovitis. Scope and probe were then guided into the intercondylar notch. Cruciates were identified, probed and found to be stable. The scope and probe were then guided into lateral compartment. Lateral meniscus was probed and was found to be stable. There was no significant chondromalacia present the lateral compartment. There was some thick reactive synovitis anteriorly. I performed a partial synovectomy decompressing the reactive synovitis. Shaver was now removed. There was good decompression of the synovitis. The scope was in guided back into the suprapatellar compartment. I introduced a motorized shaver into the suprapatellar compartment. I debrided some piecemeal fragments of meniscus that I encountered. I performed a partial synovectomy. Shaver was removed. There appeared be good decompression of the synovitis. I took one more look around the entire knee, no residual debris. Instruments were now removed from the joint. The joint was infiltrated with .25% Marcaine. Steri- Strips were applied to the portal sites. Sterile dressings were applied. The patient was placed into a EMELYN hose. No tourniquet was utilized. The patient was awakened, transferred to a bed and taken to recovery stable satisfactory condition.
[2022-10-22 11:36] VITALS: TEMP 96.8
[2022-10-22 12:50] VITALS: RESP 16
[2022-10-22] MEDS ORDERED: traMADol 50 MG TAB PO ONE (12:53)
[2022-10-22] MEDS ORDERED: traMADol 50 MG TAB ONE (12:55)
[2022-10-22 13:13] VITALS: BP 102/69; PULSE 67
== END 2022-10-22 14:03 | disposition home or self-care (01) ==
LOC: OR 09:35
PROVIDERS: ATTEND Orthopaedic Surgery
DX: S83.242A Other tear of medial meniscus, current injury, left knee, initial encounter (principal); M65.812 Other synovitis and tenosynovitis, left shoulder; I10 Essential (primary) hypertension; E78.5 Hyperlipidemia, unspecified; K21.9 Gastro-esophageal reflux disease without esophagitis; Z90.49 Acquired absence of other specified parts of digestive tract; Z90.710 Acquired absence of both cervix and uterus; Z90.89 Acquired absence of other organs; Z79.899 Other long term (current) drug therapy; Z88.2 Allergy status to sulfonamides; Z88.5 Allergy status to narcotic agent; X58.XXXA Exposure to other specified factors, initial encounter
CPT/HCPCS: 29881; J2250; J0330; J0690; J2405; J3010; J2704; J1170; J2001